=== PATIENT | male | born 1960 | race Caucasian/White ===

== ENCOUNTER 2024-01-27 16:20 | Emergency (ER) | payer MEDICAID ==
[2024-01-27 16:51] LABS: BASOPHILS PERCENT AUTO 0.3 % (0.0-1.0); EOSINOPHILS ABSOLUTE AUTO 0.2 K/mm3 (0.0-0.4); HEMATOCRIT 46.1 % (42.0-52.0); HEMOGLOBIN 16.1 gm/dl (14.0-18.0); IMMATURE GRAN ABSOLUTE AUTO 0.01 K/mm3 (0.00-0.05); IMMATURE GRAN PERCENT AUTO 0.1 % (0.0-0.4); LYMPHOCYTES ABSOLUTE AUTO 1.7 K/mm3 (1.0-4.8); LYMPHOCYTES PERCENT AUTO 17.8 % (24.0-44.0); MEAN CORPUSCULAR HEMOGLOBIN 32.3 pg (28.0-32.0); MEAN CORPUSCULAR HGB CONC 34.9 g/dl (32.0-36.0); MEAN CORPUSCULAR VOLUME 92.4 fl (83.0-99.0); MEAN PLATELET VOLUME 9.4 fl (9.4-12.4); MONOCYTES ABSOLUTE AUTO 1.2 K/mm3 (0.0-0.8); MONOCYTES PERCENT AUTO 12.6 % (0.0-8.0); NEUTROPHILS ABSOLUTE AUTO 6.4 K/mm3 (1.8-7.7); NEUTROPHILS PERCENT AUTO 67.2 % (41.0-71.0); PLATELET COUNT,PLT 266 K/mm3 (150-400); RED BLOOD CELL COUNT 4.99 M/mm3 (4.52-5.90); WHITE BLOOD CELL COUNT,WBC 9.56 K/mm3 (3.9-11.3)
[2024-01-27 17:03] LABS: A/G RATIO 1.2 (1-2); ALANINE AMINOTRANSFERASE,ALT 56 U/L (16-63); ALBUMIN 4.3 g/dl (3.4-5.0); ALKALINE PHOSPHATASE 60 U/L (46-116); ANION GAP 12.5 (5-15); ASPARTATE AMNIOTRANSFERASE,AST 30 U/L (15-37); BILIRUBIN TOTAL 0.9 mg/dL (0.2-1.0); BLOOD UREA NITROGEN,BUN 14 mg/dL (7-18); BUN/CREATININE RATIO 12.7 (14-18); CALCIUM 9.8 mg/dL (8.5-10.1); CARBON DIOXIDE,CO2 28 mEq/L (21-32); CHLORIDE,CL 100 mEq/L (98-107); CREATININE 1.1 mg/dL (0.7-1.3); EST CRCL DRUG DOSING (CG) 70.52 mL/min; ESTIMATED GFR 76 mL/min (>60); GLUCOSE RANDOM 111 mg/dL (70-99); POTASSIUM,K 3.5 mEq/L (3.5-5.1); SODIUM,NA 137 mEq/L (136-145)
[2024-01-27 17:06] LABS: TROPONIN I HIGH SENSITIVITY < 4 pg/mL (<=76)
[2024-01-27] MEDS: Aspirin 81 MG Tab.Chew PO ONE (17:20)
[2024-01-27] MEDS: Pantoprazole 40 MG Vial IVPUSH ONE (17:22)
[2024-01-27] MEDS: Sodium Chloride 0.9% 10 ML Syringe FLUSH PRN (17:23)
== END 2024-01-27 18:45 | disposition home or self-care (01) ==
LOC: JD.ED 16:20
DX: R07.89 Other chest pain (principal); Z79.899 Other long term (current) drug therapy
CPT/HCPCS: 36415; 71045; 80053; 84484; 85025; 93005; 96374; 99285; J2470; J3490; 93010; 99284; A9270-GY